=== PATIENT | male | born 1990 | race Caucasian/White ===

== ENCOUNTER 2021-03-31 21:18 | Emergency (ER) | payer OTHER, SELFPAY ==
--- NOTE | 2021-03-31 21:55 | PC.NURSE ---
pt has left the building for a smoke. pt is not in the waiting area at this time.
--- NOTE | 2021-03-31 22:05 | PC.NURSE ---
pt not in waiting area on 2nd call.
== END 2021-03-31 23:20 | disposition left against medical advice (07) ==
LOC: HO.ED 23:21
PROVIDERS: Emergency Provider Emergency Medicine
DX: F11.90 Opioid use, unspecified, uncomplicated (principal)
CPT/HCPCS: 99281

== ENCOUNTER 2021-08-15 09:02 | Emergency (ER) | payer OTHER, SELFPAY ==
[2021-08-15 09:07] VITALS: BP 115/79; PULSE 124; RESP 20; TEMP 36.5; O2SAT 95; BMI 24.5
--- NOTE | 2021-08-15 09:30 | ED_ITS ---
HPI - Wound/Laceration General Chief Complaint: Wound/Laceration Stated Complaint: abscess Time Seen by Provider: 08/15/21 09:30 Source: patient Mode of arrival: ambulatory Limitations: no limitations History of Present Illness HPI narrative: Pt with abscess to left forearm. started approx. 2 weeks ago, but not very painful til last night. pt states increased swelling this morning and came to ER. Pt with hx of IV drug use. Pt denies fever, otherwise feels well. PT denies numbness tingling in left hand. Associated symptoms: pain Related Data Previous Rx's Medication Instructions Recorded cephalexin 500 mg capsule 500 mg PO BID #20 cap 08/15/21 sulfamethoxazole 400 1 tab PO BID #20 tab 08/15/21 mg-trimethoprim 80 mg tablet (Bactrim) Allergies Allergy/AdvReac Type Severity Reaction Status Date / Time No Known Allergies Allergy Verified 08/15/21 09:13 Review of Systems Review of Systems: Constitutional :? Denies history of same, Denies any other sites involved, Positive IV drug use, Denies history of MRSA, Denies swollen glands, Denies injury, Denies Fever, Denies Chills, positive pain, Denies Systemic symptoms Cardiovascular : No Chest Pain, No SOB Respiratory : No Dyspnea Gastrointestinal : No abdominal pain Musculoskeletal : Skin : + abscess with surrounding erythema, No skin laceration, No Foreign bodies, No spreading rash, Denies bites, Denies discharge,? Neuro : No Weakness, No Numbness/tingling Psych : No SI/HI/thoughts of self injury Yes all other systems are reviewed and are negative [facility] Past Medical History Attestation statement: The following information was validated with the patient. [facility] Narrative: Pt lives in [place], [place] Medical History Asthma Drug abuse Methadone use Social History Social History Advance Directives: No Advance Directives Information Provided: No Physical Exam Vital Signs: Vital Signs: Last Vital Signs Temp 97.7 F 08/15/21 09:07 Pulse 115 H 08/15/21 10:27 Resp 17 08/15/21 10:27 BP 115/79 08/15/21 09:07 Pulse Ox 97 08/15/21 10:27 BMI result Body Mass Index 24.5 vital signs have been reviewed as normal and appeared to be correct.? Blood p ressure normal.? Heart rate 124.? Respiration rate normal.? Temperature normal.? Oxygen saturation normal. Appearance: Alert. Oriented X3. No acute distress.? ? Head: Normal external exam. Atraumatic.?? Eyes: EOMI. Eyelids normal.?? ENT: External exam normal Neck: Normal inspection. Neck supple. Normal ROM. No adenopathy. No meningeal signs. No neck mass noted.? CVS: Normal heart rate and rhythm. Heart sound normal. No murmurs noted. Respiratory: No respiratory distress. Painless inspiration. Breath sounds normal. No wheezes/rales/rhonchi noted.? ?No accessory muscle usage noted or decreased air movement noted. Back:? Full range of motion noted. Skin: Large abscess left forearm with surrounding erythema. good radial pulse distal. Skin warm and dry.? Extremities:Extremities exhibit normal range of motion.? Normal gait Extrem: Elbow/forearm/wrist images: 1. pointing abscess 3 cm diamater 2. surrounding erythema Course Course Course Narrative: Plan: abscess. No systemic toxicity, and pt looks well. + surrounding cellulitis. Not c/w nec fasc/ myositis/ DVT/ osteomyelitis. patient now status post I&D of abscess and patient tolerated procedure well.? No complications.? No labs or imaging indicated at this time.? Will DC home antibiotics and symptomatic treatment instructions. return if any new or w orsening symptoms to ED and follow up in 2 days for recheck and packing removal.? Patient understands agrees this plan. Procedures Abscess I/D Site: upper extremity (left forearm) Side (if applicable): left Sedation/analgesia: none Local Anesthetic: lidocaine 2% Amount of anesthesia used (mL): 2.0 (2.0ml) Technique: incised with blade Amount of fluid expressed (mL): 25.0 (25ml) Sent for culture/gram staining?: Yes Irrigation: No Packing used?: iodoform Discharge Plan Discharge Clinical Impression: Abscess Patient Disposition: Home, Self-Care Instructions: Abscess (ED), Abscess Follow-up (ED), Incision and Drainage (ED) Additional Instructions: Change dressing as needed. Follow up in 1 days for recheck and packing removal. Return sooner if worse, increasing pain or fever. Take antibiotics as prescribed and finish the prescription. Continue methadone treatment. Do not use drugs in left arm. Prescriptions: New cephalexin 500 mg capsule 500 mg PO BID Qty: 20 0RF sulfamethoxazole-trimethoprim [Bactrim] 400-80 mg tablet 1 tab PO BID Qty: 20 0RF Interventions: ED Discharge Assessment Last Done: 08/15/21 10:27 Discharge Date/Time: 08/15/21 10:27
[2021-08-15] MEDS: Lidocaine HCl 2 % MPF 5 ML VIAL SUBCUT (09:45)
[2021-08-15] MEDS: Diphth,Pertus(ACell),Tet Adult 0.5 ML SYRINGE IM (09:45)
[2021-08-15] MEDS: cephALEXin 500 MG CAPSULE PO (10:20)
[2021-08-15] MEDS: Sulfamethox/Trimeth 800/160 TABLET 1 TAB PO (10:20)
[2021-08-15 10:27] VITALS: PULSE 115; RESP 17; O2SAT 97
== END 2021-08-15 10:27 | disposition home or self-care (01) ==
LOC: HO.ED 10:13
PROVIDERS: Emergency Provider Emergency Medicine
DX: L02.414 Cutaneous abscess of left upper limb (principal); Z79.899 Other long term (current) drug therapy
CPT/HCPCS: 10060; 87071; 87077; 87186; 87205; 90471; 90715; 96372; 99284

== ENCOUNTER 2022-04-09 12:24 | Emergency (ER) | payer OTHER, SELFPAY ==
[2022-04-09 12:36] VITALS: BP 132/89; PULSE 130; RESP 18; TEMP 36.7; O2SAT 98; BMI 27.1
--- NOTE | 2022-04-09 13:26 | ED.SKABFB ---
HPI - Skin/Abscess/Foreign Bdy General Chief complaint: Skin/Abscess/Foreign Body Stated complaint: Repack Wound S/P Surgery 03/22/22 Time Seen by Provider: 04/09/22 12:59 Source: patient Mode of arrival: ambulatory Limitations: no limitations History of Present Illness HPI narrative: 31-year-old male who had a right hydrocele removed March 22 at [facility] by Dr. Gonzalez. Patient reports he has followed up with him postop and everything was going well. He went back to work yesterday. His job does require that he is on his feet for long periods of time. He noticed some increased pain yesterday and swelling in the right testicle. Today while walking he felt moisture done in his general region. When he looked down he noticed there was blood in his underwear and he noticed that the wound had open on his right testicle. He reports the swelling is about the same since surgery. No fevers, chills. Of note, patient does use IV drugs. Last use yesterday. He is on methadone Related Data Previous Rx's Medication Instructions Recorded cephalexin 500 mg capsule 500 mg PO BID #20 caps 08/15/21 sulfamethoxazole 400 1 tab PO BID #20 tabs 08/15/21 mg-trimethoprim 80 mg tablet (Bactrim) Allergies Allergy/AdvReac Type Severity Reaction Status Date / Time No Known Allergies Allergy Verified 08/15/21 09:13 Review of Systems Review of Systems: Yes all other systems are reviewed and are negative Constitutional: Constitutional: Reports no additional constitutional complaints, Denies body ache(s), Denies chills, Denies fever(s), Denies headache(s) and Denies weakness Eyes: Eyes: Reports no additional eye complaints and Denies change in vision ENT: Reports system reviewed and no additional complaints, except as documented, Denies dizziness, Denies headache(s), Denies nasal congestion, Denies nasal discharge and Denies neck pain Cardiovascular: Cardiovascular: Reports no additional cardiovascular complaints, Denies chest pain, Denies leg edema and Denies dyspnea Respiratory: Respiratory: Reports no additional respiratory complaints, Denies cough and Denies dyspnea Gastrointestinal: Gastrointestinal: Reports no additional gastrointestinal complaints, Denies abdominal pain, Denies diarrhea, Denies nausea and Denies vomiting Genitourinary: Genitourinary: Denies urinary incontinence Musculoskeletal: Musculoskeletal: Reports no additional musculoskeletal complaints, Denies back pain, Denies arthralgias, Denies joint swelling, Denies neck pain, Denies numbness and Denies tingling Integumentary/Breasts: Skin/Breast: Reports system reviewed and no additional complaints, except as docu and Denies rash Neurologic: Reports system reviewed and no additional complaints, except as documented, Denies Abnormal speech present, Denies dizziness, Denies headache(s), Denies numbness, Denies tingling and Denies weakness PMF Past Medical History Attestation statement: The following information was validated with the patient. Source: old records reviewed and nursing notes reviewed Medical History Asthma Drug abuse Methadone use Social History Social History Advance Directives: No Advance Directives Information Provided: Yes Physical Exam Vital Signs: Vital Signs: Last Vital Signs Temp 98.0 F 04/09/22 12:36 Pulse 130 H 04/09/22 12:36 Resp 18 04/09/22 12:36 BP 132/89 04/09/22 12:36 Pulse Ox 98 04/09/22 12:36 O2 Del Method 04/09/22 12:36 BMI result Body Mass Index 27.1 Const: General: cooperative, healthy appearing, comfortable and no acute distress Orientation/consciousness: patient oriented x3 Limitations: no limitations HEENT: Head: Yes normal to inspection Ears: hearing grossly normal bilaterally General nose exam: Normal external nose present Face and sinus: Yes normal facial exam Mouth: Normal oral and palatal mucosa present Throat: Yes posterior oropharynx normal Eyes: General: appearance normal, both eyes and all related structures Pupils: Equal, round and reactive pupils present Neck: Neck: Yes normal visual inspection Chest: Chest palpation & inspection: normal inspection of the chest Resp: Effort & Inspection: normal respiratory effort Auscultation: clear to auscultation bilaterally Cardio: Rate: regular rate Rhythm: regular rhythm Peripheral pulses: Peripheral pulses 2+ throughout GI: Inspection: Yes normal to inspection Palpation (GI): Soft to palpation and nontender Auscultation: normal bowel sounds : Penis: normal penis Male genitals images: 1. There is right scrotal swelling. There is mild tenderness. There is a surgical site with dehiscence of the wound approximately 6cm. Unable to express any drainage. Back/Spine/Pelvis: Thoracic/Lumbar Spine: thoracic and lumbar spine normal to inspection Skin: General skin exam: no rashes or lesions noted Neuro: General: patient oriented x3, no focal motor deficits and normal sensation to monofilament Cranial nerves: Yes Equal, round and reactive pupils present Cognition (Neuro): normal cognition Speech: No Abnormal speech present Gait exam (Neuro): Normal gait present Motor exam (neuro): 5/5 motor strength present throughout Extrem: General: Yes normal to inspection MDM - Skin/Abscess/Foreign Bdy MDM Narrative Medical decision making narrative: 31-year-old male here with dehiscence of surgical incision. Surgery was on March 22. I spoke to the patient's surgeon Dr. Gonzalez. Recommended applying gauze, recommending patient use his jock strap and Dr. Gonzalez will follow up with the patient next Monday or Monday Patient is aware plan of care. Reviewed worrisome signs and symptoms of when to return to the emergency room. Comfortable discharge home. Medical Records Attestation: I reviewed the patient's medical records. Lab Data Attestation: I reviewed the patient's lab results. Discharge Plan Discharge Clinical Impression: Dehiscence of wound Patient Disposition: Home, Self-Care Instructions: Wound Dehiscence (ED) Additional Instructions: Keep the wound covered with dressing. Make sure using the jock strap at home Urology will follow up with you next week Prescriptions: No Action cephalexin 500 mg capsule 500 mg PO BID Qty: 20 0RF sulfamethoxazole-trimethoprim [Bactrim] 400-80 mg tablet 1 tab PO BID Qty: 20 0RF Referrals: Natalie Browning MD [Primary Care Provider] -
--- NOTE | 2022-04-09 14:04 | PC.NURSE ---
SILVIA Herzog aware of HR
== END 2022-04-09 14:05 | disposition home or self-care (01) ==
PROVIDERS: Emergency Provider Emergency Medicine; PCP Pediatrics Adolescent Medicine
DX: T81.30XA Disruption of wound, unspecified, initial encounter (principal); Y83.9 Surgical procedure, unspecified as the cause of abnormal reaction of the patient, or of later complication, without mention of misadventure at the time of the procedure; Y92.9 Unspecified place or not applicable; N50.811 Right testicular pain; Z79.899 Other long term (current) drug therapy
CPT/HCPCS: 99282

== ENCOUNTER 2023-01-29 21:58 | Emergency (ER) | payer OTHER, SELFPAY ==
--- NOTE | ~2023-01-29 | XR_ITS ---
EXAMINATION: XR HAND, RIGHT CLINICAL INFORMATION: Pain. Question fracture. COMPARISON: None available. TECHNIQUE: PA, lateral, and oblique views of the right hand. FINDINGS: There is a chronic appearing deformity at the base of the fifth metacarpal, likely the sequela of previous fracture. Corticated ossific fragment seen at this location. There is no acute fracture. Joint spaces are maintained. There are small osteophytes at the first carpometacarpal joint noted. The soft tissues appear unremarkable. XR/XR hand RT min 3V IMPRESSION: No acute fracture or malalignment. Chronic appearing deformity at the base of the fifth metacarpal. Mild degenerative change at the first carpometacarpal joint.
[2023-01-29 22:11] VITALS: BP 110/73; PULSE 98; RESP 18; TEMP 37.7; O2SAT 94; BMI 24.2
[2023-01-29 23:55] VITALS: BP 117/66; PULSE 90; RESP 15; TEMP 36.8; O2SAT 96
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
[2023-01-30] MEDS: Acetaminophen 325 MG TABLET 975 MG PO (00:27)
== END 2023-01-30 00:29 | disposition home or self-care (01) ==
PROVIDERS: Emergency Provider Emergency Medicine; PCP Pediatrics Adolescent Medicine
DX: S63.601A Unspecified sprain of right thumb, initial encounter (principal); X50.1XXA Overexertion from prolonged static or awkward postures, initial encounter; Y93.9 Activity, unspecified; Y92.9 Unspecified place or not applicable; Y99.9 Unspecified external cause status
CPT/HCPCS: 73130; 99283; 99284

== ENCOUNTER 2023-10-04 20:59 | Emergency (ER) | payer OTHER, SELFPAY ==
[2023-10-04 21:02] VITALS: BP 124/89; PULSE 110; RESP 18; TEMP 36.7; O2SAT 94; BMI 22.8
[2023-10-04 21:22] LABS: MANUAL DIFF FLAG NO
[2023-10-04 21:27] LABS: Basophils Absolute Auto 0.1 X10*3/uL (0.0-0.2); Basophils Percent Auto 0.4 % (0-2); Eosinophils Absolute Auto 0.7 X10*3/uL (0.0-0.4); Eosinophils Percent Auto 6.1 % (0-4); Hematocrit 40.8 % (42.0-52.0); Hemoglobin 13.6 g/dl (14.0-18.0); Imm Gran Abs Auto 0.03 X10*3/uL (0.00-0.03); Imm Gran Pct Auto 0.3 % (0.0-0.4); Lymphocytes Absolute Auto 2.2 X10*3/uL (1.2-4.9); Lymphocytes Percent Auto 19.8 % (20-40); Mean Corpuscular HGB Conc 33.3 g/dl (31.0-36.0); Mean Corpuscular Hemoglobin 28.1 pg (27.0-33.0); Mean Corpuscular Volume 84.3 fL (80.0-98.0); Mean Platelet Volume 8.7 fL (9.4-12.4); Monocytes Absolute Auto 0.8 X10*3/uL (0.1-1.2); Monocytes Percent Auto 7.1 % (2-11); Neutrophils Absolute Auto 7.4 x10*3/uL (2.0-8.3); Neutrophils Percent Auto 66.3 % (45-73); Platelet Count 287 X10*3/uL (160-400); Red Blood Count 4.84 X10*6/uL (4.60-5.80); Red Cell Distribution Width 13.2 % (11.0-16.0); White Blood Count 11.2 X10*3/uL (4.8-10.8)
[2023-10-04 21:28] LABS: Appearance Urine Clear; Color Urine Dark Yellow; Glucose Urine UA Negative (Negative); Leukocyte Esterase Urine Negative (Negative); Nitrite Urine Negative (Negative); Specific Gravity - Urine >= 1.030 (1.005-1.025); Urine Blood Negative (Negative); Urine Ketones Trace mg/dL (Negative); Urine Protein Trace mg/dL (Neg-Trace)
[2023-10-04 21:38] LABS: Alanine Aminotransferase 24 U/L (0-40); Albumin Level 4.4 g/dL (3.5-5.0); Alkaline Phosphatase 61 U/L (39-117); Anion Gap 14 (12-20); Aspartate Amino Transferase 28 U/L (5-37); Bilirubin Direct 0.2 mg/dL (0.0-0.5); Bilirubin Total 0.4 mg/dL (0.0-1.0); Blood Urea Nitrogen 19 mg/dL (9-16); Calcium 9.3 mg/dL (8.4-10.2); Carbon Dioxide 29 mmol/L (22-29); Chloride 101 mmol/L (96-108); Creatinine Clr Calc Pharmacy 99.1; Estimated Glomerular Filt Rate > 60; Glucose Random 70 mg/dL (60-115); Lipase 7 U/L (8-78); Sodium 140 mmol/L (135-145); Total Protein 7.7 g/dL (6.5-8.0)
[2023-10-05 00:36] VITALS: BP 116/49; PULSE 90; RESP 18; TEMP 36.7; O2SAT 94
--- NOTE | 2023-10-05 01:43 | ED.GENADULT ---
HPI - General Adult General Chief complaint: Abdominal Pain Stated complaint: abd pain and vomiting Time Seen by Provider: 10/05/23 01:35 History of Present Illness HPI narrative: The patient is a 33-year-old male who says that for the last 5 months he has been having episodes of fell teaching belching and a foul taste in his mouth. He has also had pain in his abdomen. He feels these episodes are infrequent but occur fairly regularly at least once a month. His current symptoms have been going on for about 5 days. No fever, sweats, chills. He says his bowels have been working normally and he has been passing stool without difficulty. Related Data Previous Rx's ?Medication ?Instructions ?Recorded cephalexin 500 mg capsule 500 mg PO BID #20 caps 08/15/21 sulfamethoxazole 400 1 tab PO BID #20 tabs 08/15/21 mg-trimethoprim 80 mg tablet (Bactrim) aluminum hydrox-magnesium carb 254 10 ml PO QID PRN dyspepsia #355 mL 10/05/23 mg-237.5 mg/5 mL oral suspension (Gaviscon Extra Strength) omeprazole 40 mg capsule,delayed 40 mg PO DAILY #30 caps 10/05/23 release Allergies Allergy/AdvReac Type Severity Reaction Status Date / Time buprenorphine [From Suboxone] Allergy Unknown Verified 10/04/23 21:02 naloxone [From Suboxone] Allergy Unknown Verified 10/04/23 21:02 [facility] Past Medical History Medical History Asthma Drug abuse Methadone use Social History Social History Alcohol intake: never Substance Use Type: Marijuana Advance Directives: No Advance Directives Information Provided: No Do you have a plan to hurt others: No Plan Physical Exam ED Vital Signs: Vital Signs - 24 hr 10/04/23 21:02 10/05/23 00:36 Temperature 98.0 F 98.1 F Pulse Rate 110 H 90 Respiratory Rate 18 18 Blood Pressure 124/89 116/49 L Pulse Oximetry 94 94 Oxygen Delivery Method Room Air Room Air BMI result Body Mass Index 22.8 HENMT Other: The patient is a slim 33-year-old male who was awake and alert and does not appear in acute distress. Eyes Other: Pupils are round equal, conjunctivae are clear Neck Other: No neck swelling Resp Effort & Inspection: normal respiratory effort Auscultation: clear to auscultation bilaterally Cardio Rate: regular rate Rhythm: regular rhythm Heart sounds: S1 normal heart sound present and S2 normal heart sound present GI Other: The abdomen is flat, soft, and nontender. Skin Other: Skin is dry and unremarkable Neuro Other: The patient is awake and alert, speech is clear, face symmetrical, moving his extremities normally, grossly neurologically intact Extrem Other: No peripheral edema Medical Decision Making Medical Decision Making [facility] Narrative: The patient is a 33-year-old male who presents complaining of intermittent upper abdominal discomfort associated with a bad taste in his mouth. He has a benign abdomen. I assume he has some form of dyspepsia and will be started on omeprazole and Gaviscon. He should follow up with his PCP. Lab Data 10/04/23 21:00 10/04/23 21:00 Labs: Lab Results 10/04/23 Range/Units 21:00 WBC 11.2 H (4.8-10.8) X10*3/uL RBC 4.84 (4.60-5.80) X10*6/uL Hgb 13.6 L (14.0-18.0) g/dl Hct 40.8 L (42.0-52.0) % MCV 84.3 (80.0-98.0) fL MCH 28.1 (27.0-33.0) pg MCHC 33.3 (31.0-36.0) g/dl RDW 13.2 (11.0-16.0) % Plt Count 287 (160-400) X10*3/uL MPV 8.7 L (9.4-12.4) fL Immature Gran % (Auto) 0.3 (0.0-0.4) % Neut % (Auto) 66.3 (45-73) % Lymph % (Auto) 19.8 L (20-40) % [place] % (Auto) 7.1 (2-11) % Eos % (Auto) 6.1 H (0-4) % Baso % (Auto) 0.4 (0-2) % Lymph # (Auto) 2.2 (1.2-4.9) X10*3/uL [place] # (Auto) 0.8 (0.1-1.2) X10*3/uL Eos # (Auto) 0.7 H (0.0-0.4) X10*3/uL Baso # (Auto) 0.1 (0.0-0.2) X10*3/uL Abs Immat Gran (auto) 0.03 (0.00-0.03) X10*3/uL Absolute Neuts (auto) 7.4 (2.0-8.3) x10*3/uL Absolute Nucleated RBC 0.000 (0.0-0.012) X10*3/uL Nucleated RBC % (auto) 0.0 (0.0-0.2) /100WBC Sodium 140 (135-145) mmol/L Potassium 4.0 (3.3-5.1) mmol/L Chloride 101 (96-108) mmol/L Carbon Dioxide 29 (22-29) mmol/L Anion Gap 14 (12-20) BUN 19 H (9-16) mg/dL Creatinine 1.01 (0.5-1.4) mg/dL Estim Creat Clear Calc 99.1 Estimated GFR > 60 Random Glucose 70 (60-115) mg/dL Calcium 9.3 (8.4-10.2) mg/dL Total Bilirubin 0.4 (0.0-1.0) mg/dL Direct Bilirubin 0.2 (0.0-0.5) mg/dL AST 28 (5-37) U/L ALT 24 (0-40) U/L Alkaline Phosphatase 61 (39-117) U/L Total Protein 7.7 (6.5-8.0) g/dL Albumin 4.4 (3.5-5.0) g/dL Lipase 7 L (8-78) U/L Urine Color Dark Yellow Urine Appearance Clear Urine pH 6.0 (5.0-9.0) Ur Specific [place] >= 1.030 H (1.005-1.025) Urine Protein Trace (Neg-Trace) mg/dL Urine Glucose (UA) Negative (Negative) mg/dL Urine Ketones Trace (Negative) mg/dL Urine Blood Negative (Negative) Urine Nitrite Negative (Negative) Ur Leukocyte Esterase Negative (Negative) Discharge Plan Discharge Clinical Impression: Dyspepsia Patient Disposition: Home, Self-Care Instructions: Gastritis (ED) Additional Instructions: I think that your symptoms are most likely related to stomach acid problem. This is sometimes called dyspepsia, sometimes it is called reflux, sometimes it is called gastritis. I have sent a prescription for medication called omeprazole to your pharmacy in [place]. Please take this once a day. Additionally I sent a prescription for medication called Gaviscon that you may use on an as-needed basis up to 3 times a day. Please do your best to try to make an appointment with your regular doctor and possibly get a referral to a loan clerk if you have ongoing symptoms. Return to the emergency room if worse. Prescriptions: New Gaviscon Extra Strength 254-237.5 mg/5 mL suspension 10 ml PO QID PRN (Reason: dyspepsia) Qty: 355 0RF omeprazole 40 mg capsule,delayed release(DR/EC) 40 mg PO DAILY Qty: 30 0RF No Action cephalexin 500 mg capsule 500 mg PO BID Qty: 20 0RF sulfamethoxazole-trimethoprim [Bactrim] 400-80 mg tablet 1 tab PO BID Qty: 20 0RF Referrals: Natalie Browning MD [Primary Care Provider] - (Dyspepsia/gastritis/reflux) Print Language: Argentine
[2023-10-05] MEDS: Omeprazole 40 MG CAPSULE.DR PO (01:52)
[2023-10-05 01:55] VITALS: BP 116/49; PULSE 90; RESP 18; TEMP 36.7; O2SAT 94
== END 2023-10-05 01:56 | disposition home or self-care (01) ==
PROVIDERS: Emergency Provider Emergency Medicine; PCP Pediatrics Adolescent Medicine
DX: R10.13 Epigastric pain (principal)
CPT/HCPCS: 36415; 80048; 80076; 81003; 83690; 85025; 99283